=== PATIENT | male | born 1990 | race Hispanic/Latino ===

== ENCOUNTER 2018-11-30 02:52 | Emergency (ER) | payer OTHER | END 2018-11-30 04:30 | disposition home or self-care (01) | LOC: EDH 02:52 | DX: S61.411A Laceration without foreign body of right hand, initial encounter (principal); W25.XXXA Contact with sharp glass, initial encounter; Y93.89 Activity, other specified; Y92.098 Other place in other non-institutional residence as the place of occurrence of the external cause; Y99.8 Other external cause status | CPT/HCPCS: 99281 ==

== ENCOUNTER 2023-01-13 12:58 | Emergency (ER) | payer BC, OTHER | END 2023-01-13 14:09 | disposition left against medical advice (07) | LOC: EDH 12:58 | DX: Z53.21 Procedure and treatment not carried out due to patient leaving prior to being seen by health care provider (principal) ==